=== PATIENT | male | born 1985 | race Hispanic/Latino ===

== ENCOUNTER 2022-10-09 13:16 | Emergency (ER) | payer SELFPAY ==
[~2022-10-09 13:16] MED LIST: Iopamidol-370 76% 500 ML MDV (1 ML CHARGE) ONE
[2022-10-09] MEDS ORDERED: HYDROcodone/Acetaminophen 7.5/325 mg Tablet ONE (13:43)
[2022-10-09] MEDS ORDERED: Ketorolac Tromethamine 30 MG/ML VIAL ONE (13:43)
[2022-10-09 13:50] LABS: #Eosinphils 0.2 thou/uL (0.0-0.7); #Monocytes 0.7 thou/uL (0.11-0.59); #Neutrophils 4.7 thou/uL (1.40-6.50); %Basophils 0.4 % (0.0-1.0); %Eosinophils 2.3 % (0.0-10.0); %Lymphocytes 32.2 % (21.0-51.0); %Monocytes 8.7 % (0.0-10.0); %Neutrophils 56.2 % (42.0-75.0); Hemoglobin 15.3 g/dL (14.0-18.0); Mean Corpuscular HGB CONC 33.1 g/dL (32.0-36.0); Mean Corpuscular Hemoglobin 31.7 pg (27.0-31.0); Mean Corpuscular Volume 95.9 fl (78.0-98.0); Mean Platelet Volume 9.5 fL (7.4-10.4); Platelet Count 257 10x3/uL (130-400); RBC Distribution Width 12.7 % (11.5-14.5); Red Blood Cell (RBC) Count 4.82 mill/uL (4.70-6.10); White Blood Cell (WBC) Count 8.3 10x3/uL (4.8-10.8)
[2022-10-09 14:12] LABS: ALT (SGPT) 30 U/L (8-55); AST (SGOT) 36 U/L (5-34); Albumin 4.4 g/dL (3.5-5.0); Alkaline Phosphatase 59 U/L (40-110); Anion Gap 13 mmol/L (10-20); BUN (Urea Nitrogen) 28 mg/dL (8.9-20.6); Bilirubin, Total 0.6 mg/dL (0.2-1.2); Calc. Creatinine Clearance 0 mL/min (70-130); Calcium 9.9 mg/dL (7.8-10.44); Carbon Dioxide 27 mmol/L (22-29); Chloride 101 mmol/L (98-107); Estimated GFR 76; Glucose 144 mg/dL (70-105); Potassium 4.4 mmol/L (3.5-5.1); Protein, Total 7.4 g/dL (6.0-8.3); Sodium 137 mmol/L (136-145)
[2022-10-09] MEDS ORDERED: Lidocaine 1% PF 5 ML VIAL ONE (15:01)
[2022-10-09] MEDS ORDERED: Bupivacaine 0.25% 10 ML VIAL ONE (15:01)
== END 2022-10-09 16:04 | disposition home or self-care (01) ==
LOC: ERS 13:16
DX: K03.81 Cracked tooth (principal); F17.210 Nicotine dependence, cigarettes, uncomplicated
CPT/HCPCS: 36415; 64400; 70487; 80053; 85025; 96372; J1885; Q9967; S0020